=== PATIENT | male | born 1950 | race Caucasian/White ===

== ENCOUNTER → 2020-07-25 09:33 | Outpatient (CLI) | payer MEDICARE, BC, SELFPAY ==
[2020-07-25 10:48] LABS: Albumin 4.3 g/dL (3.5-5.0); BUN Creatinine Ratio 19.5 (6-22); Blood Urea Nitrogen 34 mg/dL (9-20); Calcium 8.9 mg/dL (8.4-10.2); Carbon Dioxide 25 mmol/L (22-32); Chloride 106 mmol/L (98-107); Estimated Glomerular Filt Rate 39.1 mL/min (>60); Glucose 159 mg/dL (80-110); HEMOLYSIS < 15 (0-50); Phosphorous 3.6 mg/dL (2.3-3.7); Potassium 4.4 mmol/L (3.4-5.1); Sodium 142 mmol/L (137-145)
== END ==
PROVIDERS: PCP Family Medicine; Referring Provider Internal Medicine; Visit Provider Internal Medicine
DX: N18.30 Chronic kidney disease, stage 3 unspecified (principal)
CPT/HCPCS: 36415; 80069

== ENCOUNTER → 2020-08-28 13:32 | Outpatient (CLI) | payer MEDICARE, BC, SELFPAY ==
[2020-08-30 21:10] LABS: Deamidated Gliadin Ab IgA 4 units (0-19); Deamidated Gliadin Ab IgG 2 units (0-19); Immunoglobulin A,Qn 243 mg/dL (61-437); t-Transglutaminase IgA <2 U/mL (0-3)
== END ==
PROVIDERS: PCP Family Medicine; Visit Provider Nurse Practitioner
DX: R19.7 Diarrhea, unspecified (principal)
CPT/HCPCS: 82784; 83516

== ENCOUNTER → 2020-09-01 20:44 | Outpatient (ROUT) | payer MEDICARE, BC, SELFPAY ==
[2020-09-01 22:20] LABS: Adenovirus F 40/41 Not Detected (Not Detect); Astrovirus Not Detected (Not Detect); Campylobacter Not Detected (Not Detect); Clostridium difficile toxin AB Not Detected (Not Detect); Cryptosporidium Not Detected (Not Detect); Cyclospora cayetanensis Not Detected (Not Detect); Entamoeba histolytica Not Detected (Not Detect); Enteroaggregative E.coli Not Detected (Not Detect); Enteropathogenic E.coli Not Detected (Not Detect); Enterotoxigenic E.coli It/st Not Detected (Not Detect); Giardia lamblia Not Detected (Not Detect); Norovirus GI/GII Not Detected (Not Detect); Plesiomonsa shigelloides Not Detected (Not Detect); Rotavirus A Not Detected (Not Detect); Salmonella Not Detected (Not Detect); Sapovirus Not Detected (Not Detect); Shiga-like toxin-prod E.coli Not Detected (Not Detect); Shigella/Enteroinvasive E.coli Not Detected (Not Detect); Vibrio Not Detected (Not Detect); Vibrio cholerae Not Detected (Not Detect); Yersinia enterocolitica Not Detected (Not Detect)
== END ==
PROVIDERS: PCP Family Medicine; Visit Provider Nurse Practitioner
DX: R19.7 Diarrhea, unspecified (principal)
CPT/HCPCS: 87507

== ENCOUNTER → 2021-01-07 09:53 | Outpatient (CLI) | payer MEDICARE, BC, SELFPAY ==
[2021-01-07 13:42] LABS: NT-proBNP (BNP-Adult 18+) 4420 pg/mL (<125)
== END ==
PROVIDERS: PCP Family Medicine; Referring Provider Registered Nurse; Visit Provider Registered Nurse
DX: I42.8 Other cardiomyopathies (principal)
CPT/HCPCS: 36415; 83880

== ENCOUNTER → 2021-05-19 13:01 | Outpatient (CLI) | payer MEDICARE, BC, SELFPAY ==
[2021-05-19 19:53] LABS: Prostate Specific Antigen Scrn 2.18 ng/mL (0.1-4.0)
[2021-05-21 10:04] LABS: Interpretation Negative (Negative)
== END ==
PROVIDERS: PCP Physician Assistant; Referring Provider Physician Assistant; Visit Provider Physician Assistant
DX: Z12.5 Encounter for screening for malignant neoplasm of prostate (principal); E66.9 Obesity, unspecified; K52.9 Noninfective gastroenteritis and colitis, unspecified
CPT/HCPCS: 83013; G0103

== ENCOUNTER → 2021-05-27 11:21 | Outpatient (CLI) | payer MEDICARE, BC, SELFPAY ==
[2021-05-28 08:52] LABS: Fecal Immunochemical Test Negative (Negative)
[2021-05-28 13:18] LABS: C difficie Toxins A and B, EIA Negative (Negative)
[2021-05-29 18:36] LABS: Calprotectin, Stool 26 ug/g (0-120); Lactoferrin, Fecal Quant <1.00 ug/mL(g) (0.00-7.24)
== END ==
PROVIDERS: PCP Physician Assistant; Visit Provider Physician Assistant
DX: K52.9 Noninfective gastroenteritis and colitis, unspecified (principal)
CPT/HCPCS: 82274; 83631; 83993; 87045; 87177; 87324; 87899

== ENCOUNTER → 2021-07-27 09:28 | Outpatient (CLI) | payer MEDICARE, BC, SELFPAY ==
[2021-07-27 20:00] LABS: Add Manual Diff / Slide Review NO; Basophils Absolute Auto 0 /uL (0-100); Basophils Percent Auto 0.7 % (0-2); Eosinophils Absolute Auto 100 /uL (0-450); Eosinophils Percent Auto 1.8 % (2-4); Hematocrit 29.3 % (41-53); Hemoglobin 9.7 g/dL (13.5-17.5); Lymphocytes Absolute Auto 500 /uL (1100-4500); Lymphocytes Percent Auto 10.4 % (25-40); Mean Corpuscular HGB Conc 33.1 % (30-36); Mean Corpuscular Hemoglobin 30.5 PG (26-34); Mean Corpuscular Volume 92.1 fL (80-100); Monocytes Absolute Auto 300 /uL (0-900); Monocytes Percent Auto 7.4 % (3-14); Neutrophils Absolute Auto 3700 /uL (1500-7000); Neutrophils Percent Auto 79.7 % (50-75); Platelet Count 123 X10^3/uL (150-400); Red Blood Cell Count 3.18 X10^6/uL (4.5-5.9); Red Cell Distribution Width 22.1 % (11.6-14.8); White Blood Cell Count 4.6 X10^3/uL (4.5-11.0)
[2021-07-27 20:04] LABS: Hemoglobin A1C% w Est Avg Glu 5.3 % (4.0-6.0)
[2021-07-27 20:09] LABS: Alanine Aminotransferase 10 IU/L (<50); Albumin 3.7 g/dL (3.5-5.0); Albumin Globulin Ratio 1.6 (1.0-2.8); Alkaline Phosphatase 76 U/L (38-126); Aspartate Aminotransferase 21 IU/L (17-59); BUN Creatinine Ratio 23.1 (6-22); Bilirubin Total 3.5 mg/dL (0.2-1.3); Blood Urea Nitrogen 39 mg/dL (9-20); Calcium 8.7 mg/dL (8.4-10.2); Carbon Dioxide 29 mmol/L (22-32); Chloride 106 mmol/L (98-107); Estimated Glomerular Filt Rate 40.3 mL/min (>60); Globulin 2.3 g/dL (1.7-4.1); Glucose 152 mg/dL (80-110); HEMOLYSIS < 15 (0-50); Potassium 3.7 mmol/L (3.4-5.1); Sodium 143 mmol/L (137-145)
[2021-07-27 20:10] LABS: Cholesterol 82 mg/dL (140-199); HDL Cholesterol 29 mg/dL (40-60); LDL Cholesterol Calculated 41 mg/dL (<100); Triglycerides 60 mg/dL (35-150); Uric Acid 6.6 mg/dL (3.5-8.5)
[2021-07-27 20:31] LABS: Thyroid Stimulating Hormone 14.9 uIU/mL (0.47-4.68)
[2021-07-27 20:53] LABS: Macrocytosis 1+; Polychromasia 1+
== END ==
PROVIDERS: PCP Physician Assistant; Visit Provider Family Medicine
DX: I42.9 Cardiomyopathy, unspecified (principal); E11.8 Type 2 diabetes mellitus with unspecified complications; E11.69 Type 2 diabetes mellitus with other specified complication; I10 Essential (primary) hypertension; I50.1 Left ventricular failure, unspecified; I50.22 Chronic systolic (congestive) heart failure; N18.30 Chronic kidney disease, stage 3 unspecified; E03.9 Hypothyroidism, unspecified; E78.5 Hyperlipidemia, unspecified; M10.9 Gout, unspecified
CPT/HCPCS: 80053; 80061; 83036; 84436; 84443; 84550; 85025

== ENCOUNTER → 2021-11-03 10:29 | Outpatient (CLI) | payer MEDICARE, BC, SELFPAY ==
[2021-11-03 18:41] LABS: Uric Acid 5.4 mg/dL (3.5-8.5)
[2021-11-03 18:59] LABS: Free T4, Direct Thyroxine 0.94 ng/dL (0.78-2.19)
== END ==
PROVIDERS: PCP Physician Assistant; Visit Provider Physician Assistant
DX: E11.8 Type 2 diabetes mellitus with unspecified complications (principal); M10.9 Gout, unspecified; E03.8 Other specified hypothyroidism
CPT/HCPCS: 84439; 84443; 84550

== ENCOUNTER → 2022-01-21 12:01 | Outpatient (CLI) | payer MEDICARE, BC, SELFPAY ==
[2022-01-22 04:44] LABS: BUN Creatinine Ratio 29.5 (6-22); Blood Urea Nitrogen 61 mg/dL (9-20); Calcium 8.7 mg/dL (8.4-10.2); Carbon Dioxide 27 mmol/L (22-32); Chloride 107 mmol/L (98-107); Estimated Glomerular Filt Rate 34 mL/min (>60); Glucose 134 mg/dL (80-110); HEMOLYSIS < 15 (0-50); Potassium 3.7 mmol/L (3.4-5.1); Sodium 147 mmol/L (137-145)
[2022-01-22 04:52] LABS: Free T4, Direct Thyroxine 1.12 ng/dL (0.78-2.19)
[2022-01-22 04:53] LABS: NT-proBNP (BNP-Adult 18+) 14300 pg/mL (<125)
== END ==
PROVIDERS: PCP Physician Assistant
DX: I42.8 Other cardiomyopathies (principal); E11.8 Type 2 diabetes mellitus with unspecified complications; I50.22 Chronic systolic (congestive) heart failure; E03.8 Other specified hypothyroidism
CPT/HCPCS: 80048; 83880; 84439; 84443

== ENCOUNTER → 2022-01-27 13:14 | Outpatient (CLI) | payer MEDICARE, BC, SELFPAY ==
[2022-01-27 20:35] LABS: Blood Urea Nitrogen 71 mg/dL (9-20); Calcium 8.7 mg/dL (8.4-10.2); Carbon Dioxide 25 mmol/L (22-32); Chloride 106 mmol/L (98-107); Estimated Glomerular Filt Rate 32 mL/min (>60); Glucose 151 mg/dL (80-110); HEMOLYSIS < 15 (0-50); Potassium 3.7 mmol/L (3.4-5.1); Sodium 145 mmol/L (137-145)
[2022-01-27 20:40] LABS: NT-proBNP (BNP-Adult 18+) 15300 pg/mL (<125)
== END ==
PROVIDERS: PCP Physician Assistant
DX: I50.22 Chronic systolic (congestive) heart failure (principal)
CPT/HCPCS: 80048; 83880

== ENCOUNTER → 2022-02-10 13:28 | Outpatient (CLI) | payer MEDICARE, BC, SELFPAY ==
[2022-02-10 20:41] LABS: Blood Urea Nitrogen 60 mg/dL (9-20); Calcium 8.8 mg/dL (8.4-10.2); Carbon Dioxide 21 mmol/L (22-32); Chloride 107 mmol/L (98-107); Estimated Glomerular Filt Rate 30 mL/min (>60); Glucose 157 mg/dL (80-110); HEMOLYSIS < 15 (0-50); Potassium 3.5 mmol/L (3.4-5.1); Sodium 143 mmol/L (137-145)
[2022-02-10 20:50] LABS: NT-proBNP (BNP-Adult 18+) 17900 pg/mL (<125)
== END ==
PROVIDERS: PCP Physician Assistant; Visit Provider Physician Assistant
DX: I42.8 Other cardiomyopathies (principal); I50.22 Chronic systolic (congestive) heart failure
CPT/HCPCS: 80048; 83880

== ENCOUNTER → 2022-02-17 11:59 | Outpatient (CLI) | payer MEDICARE, BC, SELFPAY ==
[2022-02-17 19:44] LABS: Add Manual Diff / Slide Review NO; Basophils Absolute Auto 0 /uL (0-100); Basophils Percent Auto 0.6 % (0-2); Eosinophils Absolute Auto 100 /uL (0-450); Eosinophils Percent Auto 1.1 % (2-4); Hematocrit 34.3 % (41-53); Hemoglobin 11.5 g/dL (13.5-17.5); Lymphocytes Absolute Auto 700 /uL (1100-4500); Lymphocytes Percent Auto 10.9 % (25-40); Mean Corpuscular HGB Conc 33.5 % (30-36); Mean Corpuscular Hemoglobin 32.4 PG (26-34); Mean Corpuscular Volume 96.5 fL (80-100); Monocytes Absolute Auto 400 /uL (0-900); Monocytes Percent Auto 6.7 % (3-14); Neutrophils Absolute Auto 4900 /uL (1500-7000); Neutrophils Percent Auto 80.7 % (50-75); Platelet Count 139 X10^3/uL (150-400); Red Blood Cell Count 3.56 X10^6/uL (4.5-5.9); White Blood Cell Count 6.1 X10^3/uL (4.5-11.0)
[2022-02-17 20:00] LABS: Alanine Aminotransferase 19 IU/L (<50); Albumin 4.1 g/dL (3.5-5.0); Albumin Globulin Ratio 1.6 (1.0-2.8); Alkaline Phosphatase 128 U/L (38-126); Aspartate Aminotransferase 27 IU/L (17-59); BUN Creatinine Ratio 27.5 (6-22); Bilirubin Total 3.2 mg/dL (0.2-1.3); Blood Urea Nitrogen 63 mg/dL (9-20); Calcium 8.7 mg/dL (8.4-10.2); Carbon Dioxide 25 mmol/L (22-32); Chloride 104 mmol/L (98-107); Estimated Glomerular Filt Rate 30 mL/min (>60); Globulin 2.5 g/dL (1.7-4.1); Glucose 141 mg/dL (80-110); HEMOLYSIS 20 (0-50); Magnesium 2.1 mg/dL (1.6-2.3); Potassium 4.5 mmol/L (3.4-5.1); Sodium 142 mmol/L (137-145); Total Protein 6.6 g/dL (6.3-8.2)
[2022-02-17 20:13] LABS: NT-proBNP (BNP-Adult 18+) 16900 pg/mL (<125)
[2022-02-17 21:28] LABS: Anisocytosis 2+
== END ==
PROVIDERS: PCP Physician Assistant
DX: I50.22 Chronic systolic (congestive) heart failure (principal)
CPT/HCPCS: 80053; 83735; 83880; 85025

== ENCOUNTER → 2022-02-24 12:14 | Outpatient (CLI) | payer MEDICARE, BC, SELFPAY ==
[2022-02-24 19:29] LABS: BUN Creatinine Ratio 28.5 (6-22); Blood Urea Nitrogen 70 mg/dL (9-20); Calcium 8.5 mg/dL (8.4-10.2); Carbon Dioxide 27 mmol/L (22-32); Chloride 102 mmol/L (98-107); Estimated Glomerular Filt Rate 27 mL/min (>60); Glucose 126 mg/dL (80-110); Potassium 4.6 mmol/L (3.4-5.1); Sodium 141 mmol/L (137-145)
[2022-02-24 20:16] LABS: HEMOLYSIS < 15 (0-50); NT-proBNP (BNP-Adult 18+) 17300 pg/mL (<125)
== END ==
PROVIDERS: Internal Medicine Cardiovascular Disease; PCP Physician Assistant
DX: I50.22 Chronic systolic (congestive) heart failure (principal)
CPT/HCPCS: 80048; 83880

== ENCOUNTER → 2022-03-10 11:49 | Outpatient (CLI) | payer MEDICARE, BC, SELFPAY ==
[2022-03-10 20:50] LABS: BUN Creatinine Ratio 26.3 (6-22); Blood Urea Nitrogen 63 mg/dL (9-20); Calcium 8.6 mg/dL (8.4-10.2); Carbon Dioxide 27 mmol/L (22-32); Chloride 105 mmol/L (98-107); Estimated Glomerular Filt Rate 28 mL/min (>60); Glucose 146 mg/dL (80-110); HEMOLYSIS < 15 (0-50); Potassium 4.3 mmol/L (3.4-5.1); Sodium 142 mmol/L (137-145)
[2022-03-10 20:59] LABS: NT-proBNP (BNP-Adult 18+) 16600 pg/mL (<125)
== END ==
PROVIDERS: Internal Medicine Cardiovascular Disease; PCP Physician Assistant
DX: I50.22 Chronic systolic (congestive) heart failure (principal)
CPT/HCPCS: 80048; 83880

== ENCOUNTER → 2022-03-17 11:24 | Outpatient (CLI) | payer MEDICARE, BC, SELFPAY ==
[2022-03-17 19:35] LABS: BUN Creatinine Ratio 27.2 (6-22); Blood Urea Nitrogen 64 mg/dL (9-20); Calcium 8.5 mg/dL (8.4-10.2); Carbon Dioxide 27 mmol/L (22-32); Chloride 102 mmol/L (98-107); Estimated Glomerular Filt Rate 29 mL/min (>60); Glucose 176 mg/dL (80-110); HEMOLYSIS < 15 (0-50); Potassium 4.8 mmol/L (3.4-5.1); Sodium 139 mmol/L (137-145)
[2022-03-17 19:38] LABS: NT-proBNP (BNP-Adult 18+) 16400 pg/mL (<125)
== END ==
PROVIDERS: PCP Physician Assistant; Visit Provider Internal Medicine Cardiovascular Disease
DX: I42.8 Other cardiomyopathies (principal); I50.22 Chronic systolic (congestive) heart failure
CPT/HCPCS: 80048; 83880

== ENCOUNTER → 2022-03-24 11:30 | Outpatient (CLI) | payer MEDICARE, BC, SELFPAY ==
[2022-03-24 19:35] LABS: BUN Creatinine Ratio 25.3 (6-22); Blood Urea Nitrogen 63 mg/dL (9-20); Calcium 8.7 mg/dL (8.4-10.2); Carbon Dioxide 27 mmol/L (22-32); Chloride 103 mmol/L (98-107); Estimated Glomerular Filt Rate 27 mL/min (>60); Glucose 149 mg/dL (80-110); HEMOLYSIS < 15 (0-50); Potassium 4.4 mmol/L (3.4-5.1); Sodium 139 mmol/L (137-145)
[2022-03-24 19:44] LABS: NT-proBNP (BNP-Adult 18+) 18200 pg/mL (<125)
== END ==
PROVIDERS: PCP Physician Assistant; Visit Provider Internal Medicine Cardiovascular Disease
DX: I50.22 Chronic systolic (congestive) heart failure (principal)
CPT/HCPCS: 80048; 83880

== ENCOUNTER → 2022-04-19 13:02 | Outpatient (CLI) | payer MEDICARE, BC, SELFPAY ==
[2022-04-19 20:23] LABS: BUN Creatinine Ratio 23.9 (6-22); Blood Urea Nitrogen 59 mg/dL (9-20); Calcium 8.7 mg/dL (8.4-10.2); Carbon Dioxide 27 mmol/L (22-32); Chloride 105 mmol/L (98-107); Estimated Glomerular Filt Rate 27 mL/min (>60); Glucose 151 mg/dL (80-110); HEMOLYSIS < 15 (0-50); Potassium 4.5 mmol/L (3.4-5.1); Sodium 142 mmol/L (137-145)
[2022-04-19 20:31] LABS: NT-proBNP (BNP-Adult 18+) 18800 pg/mL (<125)
== END ==
PROVIDERS: PCP Physician Assistant; Visit Provider Internal Medicine Cardiovascular Disease
DX: I50.22 Chronic systolic (congestive) heart failure (principal)
CPT/HCPCS: 80048; 83880

== ENCOUNTER → 2022-04-28 11:43 | Outpatient (CLI) | payer MEDICARE, BC, SELFPAY ==
[2022-04-28 20:55] LABS: BUN Creatinine Ratio 25.5 (6-22); Blood Urea Nitrogen 60 mg/dL (9-20); Calcium 8.5 mg/dL (8.4-10.2); Carbon Dioxide 24 mmol/L (22-32); Chloride 106 mmol/L (98-107); Estimated Glomerular Filt Rate 29 mL/min (>60); Glucose 138 mg/dL (80-110); HEMOLYSIS < 15 (0-50); Potassium 4.2 mmol/L (3.4-5.1); Sodium 142 mmol/L (137-145)
[2022-04-28 21:05] LABS: NT-proBNP (BNP-Adult 18+) 16000 pg/mL (<125)
== END ==
PROVIDERS: PCP Physician Assistant
DX: I50.22 Chronic systolic (congestive) heart failure (principal)
CPT/HCPCS: 80048; 83880

== ENCOUNTER → 2022-05-06 11:23 | Outpatient (CLI) | payer MEDICARE, BC, SELFPAY ==
[2022-05-06 20:48] LABS: BUN Creatinine Ratio 26.5 (6-22); Blood Urea Nitrogen 69 mg/dL (9-20); Calcium 8.6 mg/dL (8.4-10.2); Carbon Dioxide 22 mmol/L (22-32); Chloride 108 mmol/L (98-107); Estimated Glomerular Filt Rate 26 mL/min (>60); Glucose 154 mg/dL (80-110); HEMOLYSIS < 15 (0-50); Potassium 4.6 mmol/L (3.4-5.1); Sodium 142 mmol/L (137-145)
[2022-05-06 20:56] LABS: NT-proBNP (BNP-Adult 18+) 16600 pg/mL (<125)
== END ==
PROVIDERS: PCP Physician Assistant; Visit Provider Internal Medicine Cardiovascular Disease
DX: I50.22 Chronic systolic (congestive) heart failure (principal)
CPT/HCPCS: 80048; 83880

== ENCOUNTER → 2022-05-12 13:07 | Outpatient (CLI) | payer MEDICARE, BC, SELFPAY ==
[2022-05-12 19:39] LABS: BUN Creatinine Ratio 24.2 (6-22); Blood Urea Nitrogen 62 mg/dL (9-20); Calcium 8.4 mg/dL (8.4-10.2); Carbon Dioxide 26 mmol/L (22-32); Chloride 103 mmol/L (98-107); Estimated Glomerular Filt Rate 26 mL/min (>60); Glucose 154 mg/dL (80-110); HEMOLYSIS < 15 (0-50); Potassium 4.4 mmol/L (3.4-5.1); Sodium 143 mmol/L (137-145)
[2022-05-12 19:47] LABS: NT-proBNP (BNP-Adult 18+) 16200 pg/mL (<125)
== END ==
PROVIDERS: PCP Physician Assistant; Visit Provider Internal Medicine Cardiovascular Disease
DX: I50.22 Chronic systolic (congestive) heart failure (principal)
CPT/HCPCS: 80048; 83880

== ENCOUNTER → 2022-06-02 11:24 | Outpatient (CLI) | payer MEDICARE, BC, SELFPAY ==
[2022-06-02 20:22] LABS: BUN Creatinine Ratio 27.5 (6-22); Blood Urea Nitrogen 89 mg/dL (9-20); Calcium 8.8 mg/dL (8.4-10.2); Carbon Dioxide 31 mmol/L (22-32); Chloride 96 mmol/L (98-107); Estimated Glomerular Filt Rate 20 mL/min (>60); Glucose 136 mg/dL (80-110); HEMOLYSIS < 15 (0-50); Potassium 3.9 mmol/L (3.4-5.1); Sodium 140 mmol/L (137-145)
[2022-06-02 20:26] LABS: NT-proBNP (BNP-Adult 18+) 20000 pg/mL (<125)
== END ==
PROVIDERS: PCP Physician Assistant; Visit Provider Internal Medicine Cardiovascular Disease
DX: I50.22 Chronic systolic (congestive) heart failure (principal)
CPT/HCPCS: 80048; 83880

== ENCOUNTER → 2022-06-09 12:09 | Outpatient (CLI) | payer MEDICARE, BC, SELFPAY ==
[2022-06-09 19:51] LABS: HEMOLYSIS < 15 (0-50); NT-proBNP (BNP-Adult 18+) 19600 pg/mL (<125)
[2022-06-09 19:54] LABS: BUN Creatinine Ratio 29.5 (6-22); Blood Urea Nitrogen 102 mg/dL (9-20); Calcium 8.6 mg/dL (8.4-10.2); Carbon Dioxide 31 mmol/L (22-32); Chloride 91 mmol/L (98-107); Estimated Glomerular Filt Rate 18 mL/min (>60); Glucose 179 mg/dL (80-110); Potassium 3.6 mmol/L (3.4-5.1); Sodium 139 mmol/L (137-145)
== END ==
PROVIDERS: PCP Physician Assistant; Visit Provider Internal Medicine Cardiovascular Disease
DX: I50.22 Chronic systolic (congestive) heart failure (principal)
CPT/HCPCS: 80048; 83880

== ENCOUNTER → 2022-06-16 13:37 | Outpatient (CLI) | payer MEDICARE, BC, SELFPAY ==
[2022-06-16 19:48] LABS: BUN Creatinine Ratio 26.1 (6-22); Blood Urea Nitrogen 99 mg/dL (9-20); Carbon Dioxide 29 mmol/L (22-32); Chloride 98 mmol/L (98-107); Estimated Glomerular Filt Rate 16 mL/min (>60); Glucose 144 mg/dL (80-110); HEMOLYSIS < 15 (0-50); Potassium 4.5 mmol/L (3.4-5.1); Sodium 138 mmol/L (137-145)
[2022-06-16 19:49] LABS: NT-proBNP (BNP-Adult 18+) 18100 pg/mL (<125)
== END ==
PROVIDERS: PCP Physician Assistant; Visit Provider Internal Medicine Cardiovascular Disease
DX: I42.8 Other cardiomyopathies (principal); I50.22 Chronic systolic (congestive) heart failure
CPT/HCPCS: 80048; 83880